=== PATIENT | male | born 1945 | race Two or more races ===

== ENCOUNTER 2021-09-11 07:22 | Day surgery (SDC) | payer OTHER ==
[2021-09-11] MEDS ORDERED: DOCUSATE CALCI240 MG PO (12:10)
[2021-09-11] MEDS ORDERED: ULTRAM50 MG PO (12:10)
[2021-09-11] MEDS ORDERED: DETROL LA2 MG PO (12:10)
== END 2021-09-11 16:45 | disposition home or self-care (01) ==
LOC: CIR.AMB 07:22
PROVIDERS: ATTEND Surgery
DX: C67.9 Malignant neoplasm of bladder, unspecified (principal); Z20.822 Contact with and (suspected) exposure to COVID-19; I10 Essential (primary) hypertension; E11.9 Type 2 diabetes mellitus without complications

== ENCOUNTER 2021-11-13 06:07 | Day surgery (SDC) | payer OTHER ==
[~2021-11-13] VITALS: Ht 172.7 cm; Wt 86.2 kg
[~2021-11-13 06:07] MED LIST: CARVEDILOL25 MG PO; DETROL LA2 MG PO; DOCUSATE CALCI240 MG PO; HYDROCHLOROTHIA25 MG PO; ULTRAM50 MG PO
[2021-11-13] MEDS ORDERED: SURFAK240 M1 PO (14:06)
[2021-11-13] MEDS ORDERED: CEPHALEXIN500 M1 PO (14:06)
[2021-11-13] MEDS ORDERED: ULTRAM50 MG PO (14:07)
== END 2021-11-13 18:00 | disposition home or self-care (01) ==
LOC: CIR.AMB 06:07
PROVIDERS: ATTEND Surgery
DX: C66.2 Malignant neoplasm of left ureter (principal); Z85.51 Personal history of malignant neoplasm of bladder; N13.70 Vesicoureteral-reflux, unspecified; N40.0 Benign prostatic hyperplasia without lower urinary tract symptoms; Z20.822 Contact with and (suspected) exposure to COVID-19; I10 Essential (primary) hypertension; Z86.16 Personal history of COVID-19